=== PATIENT | female | born 2000 | race Caucasian/White ===

== ENCOUNTER 2024-04-18 10:32 | Emergency (ER) | payer MEDICAID ==
[~2024-04-18] VITALS: Ht 170.2 cm; Wt 83.9 kg
[~2024-04-18 10:32] MED LIST: ANT PO
[2024-04-18 10:57] VITALS: O2SAT 99
[2024-04-18 11:26] LABS: CHLORIDE 104 mEq/L (98-107); POTASSIUM 3.5 mEq/L (3.5-5.1); SODIUM 139 mEq/L (136-145)
[2024-04-18 11:27] LABS: CARBON DIOXIDE 25 mEq/L (21-32)
[2024-04-18 11:28] LABS: BASOPHILS % 0.4 % (0.0-2.0); CALCIUM 8.7 mg/dL (8.7-10.4); EOSINOPHILS % 2.2 % (0.0-5.0); HEMATOCRIT. 32.4 % (36.0-48.0); HEMOGLOBIN. 10.9 g/dL (12.0-16.0); LYMPHOCYTES % 32.1 % (20.0-50.0); MEAN CORPUSCULAR HEMOGLOBIN 29.8 pg (28.0-32.0); MEAN CORPUSCULAR HGB CONC 33.6 g/dL (31.0-37.0); MEAN CORPUSCULAR VOLUME 88.6 fL (81.0-99.0); MEAN PLATELET VOLUME 9.7 fl (7.4-10.4); MONOCYTES % 6.3 % (2.0-8.0); PLATELET 142 x1000/uL (130-400); RED BLOOD CELL COUNT 3.66 mill/uL (4.2-5.4); RED CELL DISTRIBUTION WIDTH 13.8 % (11.6-14.6); WHITE BLOOD COUNT 7.4 x1000/uL (4.5-11.0)
[2024-04-18 11:32] LABS: CREATININE 0.5 mg/dL (0.6-1.0); GLUCOSE 70 mg/dL (70-105); UREA NITROGEN BLOOD 6 mg/dL (9-23)
[2024-04-18 13:12] VITALS: BP 105/54; PULSE 65; RESP 16; TEMP 98.3
[2024-04-18] MEDS ORDERED: T3 PO (14:02)
== END 2024-04-18 14:04 | disposition home or self-care (01) ==
LOC: ER 10:32
DX: N93.9 Abnormal uterine and vaginal bleeding, unspecified (principal); F32.9 Major depressive disorder, single episode, unspecified; R10.2 Pelvic and perineal pain
CPT/HCPCS: 80048; 84702; 85025; 86850; 86900; 86901; 36415; 76830; 76856; 99284; Z7610

== ENCOUNTER 2024-06-26 22:34 | Emergency (ER) | payer MEDICAID ==
[~2024-06-26] VITALS: Ht 167.6 cm; Wt 82.0 kg
[~2024-06-26 22:34] MED LIST changes: +T3 PO
[2024-06-26 22:39] VITALS: TEMP 36.22512; O2SAT 100
[2024-06-26 23:00] VITALS: RESP 16
[2024-06-26 23:38] LABS: BASOPHILS % 0.4 % (0.0-2.0); EOSINOPHILS % 2.9 % (0.0-5.0); HEMATOCRIT. 33.8 % (36.0-48.0); HEMOGLOBIN. 10.9 g/dL (12.0-16.0); LYMPHOCYTES % 35.6 % (20.0-50.0); MEAN CORPUSCULAR HEMOGLOBIN 27.4 pg (28.0-32.0); MEAN CORPUSCULAR HGB CONC 32.4 g/dL (31.0-37.0); MEAN CORPUSCULAR VOLUME 84.5 fL (81.0-99.0); MEAN PLATELET VOLUME 9.3 fl (7.4-10.4); MONOCYTES % 7.5 % (2.0-8.0); NEUTROPHILS % 53.6 % (40.0-76.0); PLATELET 195 x1000/uL (130-400); RED CELL DISTRIBUTION WIDTH 14.4 % (11.6-14.6)
[2024-06-26 23:48] LABS: CHLORIDE 108 mEq/L (98-107); POTASSIUM 3.1 mEq/L (3.5-5.1); SODIUM 139 mEq/L (136-145)
[2024-06-26 23:49] LABS: CALCIUM 9.5 mg/dL (8.7-10.4); CARBON DIOXIDE 24 mEq/L (21-32)
[2024-06-26 23:54] LABS: CREATININE 0.6 mg/dL (0.6-1.0); GLUCOSE 92 mg/dL (70-105); UREA NITROGEN BLOOD 10 mg/dL (9-23)
[2024-06-27] MEDS: LORAZEPAM 1MG TABLET PO ONE (00:02)
[2024-06-27 00:03] LABS: HCG SCREEN NEGATIVE
[2024-06-27 01:30] VITALS: BP 98/70; PULSE 80; O2SAT 99
[2024-06-27] MEDS: POTASSIUM CHLORIDE 20MEQ TABLET SR PO NR (02:15)
== END 2024-06-27 01:54 | disposition home or self-care (01) ==
LOC: ER 22:34
DX: T40.711A Poisoning by cannabis, accidental (unintentional), initial encounter (principal); F41.9 Anxiety disorder, unspecified; F12.10 Cannabis abuse, uncomplicated; X58.XXXA Exposure to other specified factors, initial encounter
CPT/HCPCS: 36415; 80048; 84703; 85025; 93005; 99284